=== PATIENT | female | born 1955 | race Caucasian/White ===

== ENCOUNTER → 2019-09-20 17:50 | Outpatient (CLI) | payer OTHER, SELFPAY ==
--- NOTE | 2019-09-20 | CYSPIN_PTH ---
PATIENT: [facility] U[facility][id number] AGE/SX: 69/F ROOM: RE09/20/[address]: Dr. Keyonna Alejo MD : 1955 BED: DIS: SPEC #: [id number] RECD: 09/23/19 09:02 STATUS: NAREN REJeffery #: [id number] JESSICA: 09/20/19 00:[address]: Keyonna Alejo DEPT: CYTOLOGY RECD BY: Elio Aguilera ENTERED: 09/23/19 09:03 SP TYPE: CYSPIN FL OTHR DR: Dr. Jasmin Patterson MD Tissues: Urine Procedures: Pap Stain (control) Special Stain Group II Cytospin Fluid HEADER OPERATION: Not noted PRE-OP DIAGNOSIS: Gross hematuria TISSUE SUBMITTED: Urine for cytology DIAGNOSIS CYTOLOGY Urine for cytology (cytospin): Negative for malignant cells. Paucicellular specimen. See comment. SJ:rg 09/24/19 COMMENT Correlation with clinical findings and appropriate follow up are necessary. CYTOLOGY STUDY Slides are reviewed. CYTOLOGY GROSS Received is 10 ml of light yellow fluid labeled with the patient's name and and designated per the requisition as urine. Submitted for cytology preparation. / neel 09/23/19 TC:4 CPT: 51665
[2019-09-20 17:52] LABS: Cytology, Body Fluid / CSF SEE PATHOLOGY REPORT
== END ==
PROVIDERS: PCP Family Medicine; Referring Provider Urology; Visit Provider Urology
DX: R31.0 Gross hematuria (principal)
CPT/HCPCS: 88108; 88313

== ENCOUNTER → 2019-09-21 08:20 | Outpatient (CLI) | payer OTHER, SELFPAY | PROVIDERS: PCP Family Medicine; Referring Provider Urology; Visit Provider Urology | DX: R31.0 Gross hematuria (principal) ==

== ENCOUNTER → 2019-09-27 07:54 | Outpatient (CLI) | payer OTHER, SELFPAY ==
--- NOTE | 2019-09-27 08:00 | CT_ITS ---
STUDY: CT ABDOMEN AND PELVIS WITH AND WITHOUT CONTRAST REASON FOR EXAM: Female, 63 years old. GROSS HEMATURIA, ON OSTEOPEROSIS MEDS X 1 YEAR RADIATION DOSAGE (If Supplied By Facility): CTDIvol = ( 12.43 ) mGy, DLP = ( 1705.46 ) mGycm COMPARISON: None TECHNIQUE: A CT scan of the abdomen and pelvis was performed initially withIV contrast contrast administration. Coronal and sagittal reconstruction images were reviewed. This exam was performed according to our departmental dose-optimization program, which includes automated exposure control, adjustment of the mA and/or kV according to patient size and/or use of iterative reconstruction technique. FINDINGS: The lung bases and the base of the heart are normal. The liver is normal.The spleen is normal.The adrenal glands are normal.The head, body, and tail of the pancreas are normal. The right kidney appears to be normal with no evidence of calyceall calculi, mass, or obstructive uropathy. On the left side, mild left renal hydronephrosis is identified due to an obstructing calculus measuring about 5 x 1.1 cm in size seen in the proximal left ureter at the left ureteropelvic junction. 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 The ureter distal to these obstructing calculi appear to be normal. The urinary bladder is normal. The abdominal aortal is normal along its course and distribution. No paraortic lymphadenopathy is seen. No abdominal masses or lesions are seen. The CT scan of the pelvis was then reviewed. The common iliac vessels, external iliac vessels, and common femoral vessels are normal along their course and distribution No pelvis masses or lesions are seen. The appendix is normal. No pericecal inflammatory reaction is seen. Bone scanning windows of the lumbar spine and pelvis were reviewed in the coronal and sagittal planes and show mild levoscoliosis of mid lumbar spine. CT/CT Abd/Pelvis W/WO Contrast IMPRESSION: One and possibly 2 partially obstructing calculi are noted in the proximal left ureter at the left ureterovesical junction. Electronically Signed: Michael Quiros, at 9:04 EST Tel , Service support ,
[2019-09-27 08:11] LABS: CREATININE FINGERSTICK 0.6 mg/dL (0.55-1.02); EGFR FINGERSTICK > 60.0000 mL/min (>60)
== END ==
PROVIDERS: PCP Family Medicine; Referring Provider Urology; Visit Provider Urology
DX: R31.0 Gross hematuria (principal)
CPT/HCPCS: 74178; Q9967

== ENCOUNTER → 2019-11-20 09:04 | Outpatient (CLI) | payer MEDICARE, OTHER, SELFPAY ==
--- NOTE | 2019-11-20 09:13 | RAD_ITS ---
STUDY: X-RAY - ABDOMEN/PELVIS REASON FOR EXAM: Female, 64 years old. Left side ureteral stone TECHNIQUE: Single AP view of the abdomen / pelvis. COMPARISON: None. FINDINGS: There is a moderate amount of colonic fecal material. There is a linear 10.5 mm x 3 mm calcification in the left hemipelvis. This may represent a calculus or 2 adjacent calculi at the left ureterovesical junction. Normal soft tissue structures. There are diffuse degenerative changes of the visualized lumbar spine. RAD/Abdomen Single View IMPRESSION: Calcification seen in the left hemipelvis suggestive of possible calculi/calculus at the left ureterovesical junction. Electronically Signed: Ez Flynn, at 9:56 EDT , Service support ,
== END ==
PROVIDERS: PCP Family Medicine; Referring Provider Urology; Visit Provider Urology
DX: N20.1 Calculus of ureter (principal)
CPT/HCPCS: 74018